=== PATIENT | male | born 1930 | race Caucasian/White ===

== ENCOUNTER 2018-08-07 13:59 | Inpatient (IN) | payer MEDICARE, OTHER ==
[2018-08-07 14:59] LABS: ABS Eosinophils 0.2 10^3/ul (0-0.6); ABS Lymphocytes 0.9 10^3/ul (1.0-4.8); ABS Monocytes 0.4 10^3/ul (0-0.8); ABS Neutrophils 3.8 10^3/ul (1.5-7.7); Eosinophil % 4.2 %; Hematocrit 43 % (42-52); Hemoglobin 14.3 g/dL (14.0-18.0); Lymphocyte % 17.1 %; Mean Corpuscular HGB Conc 33 g/dL (31-36); Mean Corpuscular Hemoglobin 30 pg (27-31); Mean Corpuscular Volume 89 fL (80-94); Mean Platelet Volume 8.3 fL (7.4-10.4); Nucleated Red Blood Cells % 0.1; Platelet Count 189 10^3/uL (150-450); Red Cell Distribution Width 17 % (10-15); White Blood Count 5.4 10^3/uL (3.5-10.8)
[2018-08-07 15:05] LABS: INR 1.02 (0.82-1.09)
[2018-08-07 15:10] LABS: Albumin/Globulin Ratio 1.3 (1-3); BUN/Creatinine Ratio 19.9 (8-20); Calcium 9.6 mg/dL (8.6-10.3); EGFR African American 43.2 (>60); EGFR Non-African American 35.7 (>60); Globulin 3.2 g/dL (2-4); Total Bilirubin 0.8 mg/dL (0.2-1.0); Total Protein 7.2 g/dL (6.4-8.9)
[2018-08-07 15:12] LABS: Troponin I 0.03 ng/mL (<0.04)
[2018-08-07 15:15] LABS: Potassium 5.1 mmol/L (3.5-5.0)
--- NOTE | 2018-08-07 15:34 | ED ---
Upper Extremity Pain - HPI Summary HPI Summary: 88 year old M [facility] accompanied by with a chief complaint of right shoulder pain since 14:00 today in triage room. The patient rates the pain 8/10 in severity. Symptoms aggravated by nothing. Symptoms alleviated by nothing. When pt got to his room for further evaluation, he told the next nurse that he had pain across both his shoulders, but denied chest pain. Upon Dr. Caruso's evaluation gives history to Dr. Caruso that she had not given to either nurse at [facility] that this morning at 10:00 in [facility], reports decreased responsiveness. She states that patient was not present and could not communicate with her. She states he wasn't able to say anything or answer her questions. states that patient's words were thick, like his tongue was thick. thought it was his blood pressure so she brought him to [facility], where patient had EKG done. The staff at [facility] referred patient to the ED. [facility] did not report to [facility] staff any hx of problems with speech or right leg weakness. reports fatigue. She states that patient asked if it was time to go to bed. reports right leg weakness in [facility]. reports inability to ambulate in [facility]. Per , patient needed help walking to the car to get to [facility]. reports chills. Patient denies headache. Patient's symptoms have improved while waiting room between 14:15 and 15:15 per . states that although patient is sleepy now, patient is almost back to normal baseline. Patient has hx AR per . 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 Patient takes aspirin per . states that patient has been in and out of hospital in [place] where they are from. Dr. Caruso completed evaluation of pt at 1600. Vital signs at triage: HR 61 bpm, BP 144/91, O2 sat 97% - History of Current Complaint Chief Complaint: EDShoulderClavicleInj Stated Complaint: RT SHOULDER PAIN PER PT Time Seen by Provider: 08/07/18 14:14 Hx Obtained From: Patient, Family/[employer] - Mechanism Of Injury: Other - no known injury of right shoulder Onset/Duration: Started Hours Ago - this morning, Still Present Timing: Constant Severity Initially: Mild Severity Currently: Moderate Pain Location: Shoulder - right Character: Aching Aggravating Factor(s): Nothing Alleviating Factor(s): Nothing Associated Signs & Symptoms: Positive: Negative - headache, Weakness - right leg weakness at 10:00, resolved upon arrival to ED, Other - decreased responsiveness, fatigue, inability to ambulate, right-sided weakness. Negative : Chest Pain, SOB, Neck Pain, Nausea, Vomiting - Allergies/Home Medications Allergies/Adverse Reactions: Allergies Allergy/AdvReac Type Severity Reaction Status Date / Time apixaban [From Eliquis] Allergy Hives Verified 08/07/18 14:08 gabapentin Allergy Rash Verified 08/07/18 14:08 rivaroxaban [From Xarelto] Allergy Hives Verified 08/07/18 14:08 Home Medications: Home Medications Aspirin TAB* [Aspirin 325 MG TAB*] 325 mg PO DAILY 08/07/18 [History Confirmed 08/07/18] Calcium Carbonate/Vitamin D3 [Calcium 1,000 + D3 Caplet] 08/07/18 [History] Denosumab(NF) [Prolia(NF)] SEE INSTRUCTIONS 08/07/18 [History] Donepezil TAB* [Aricept 5 MG TAB*] 08/07/18 [History] Latanoprost 0.005%* [Xalatan 0.005%*] 1 drop BOTH EYES DAILY 08/07/18 [History Confirmed 08/07/18] Losartan TAB* [Cozaar TAB*] 08/07/18 [History] Memantine TAB* [Namenda TAB*] 10 mg PO DAILY 08/07/18 [History Confirmed ] Methotrexate TAB* 7.5 mg PO WEEKLY 08/07/18 [History Confirmed 08/07/18] Metoprolol Tartrate TAB* [Lopressor TAB*] 25 mg PO BID 08/07/18 [History Confirmed 08/07/18] Senna TAB* [Senokot TAB*] 1 tab PO DAILY 08/07/18 [History Confirmed 08/07/18] Tamsulosin HCl [Flomax] 0.4 mg PO DAILY 08/07/18 [History Confirmed 08/07/18] predniSONE [Prednisone 5 MG TAB] 5 mg PO DAILY 08/07/18 [History Confirmed 08/07] PMH/Surg Hx/FS Hx/Imm Hx Previously Healthy: No Cardiovascular History: Reports: Hx Myocardial Infarction Respiratory History: Reports: Other Respiratory Problems/Disorders - mets to lung from metastatic melanoma GI History: Reports: Other GI Disorders - mets to liver from metastatic melanoma Sensory History: Reports: Hx Contacts or Glasses, Hx Hearing Aid Opthamlomology History: Reports: Hx Contacts or Glasses EENT History: Reports: Hx Hearing Aid Neurological History: Reports: Hx Transient Ischemic Attacks (TIA) - Cancer History Date and Location of Last Treatment: metastatic melanoma to liver and lung, not known metastatic to brain - Surgical History Surgical History: None Hx Anesthesia Reactions: No Infectious Disease History: No Infectious Disease History: Denies: Traveled Outside the [place] in Last 30 Days - Family History Known Family History: Positive: Hypertension Negative: Other - cva - Social History Lives: With Family Alcohol Use: None Hx Substance Use: No Substance Use Type: Reports: None Hx Tobacco Use: No Smoking Status (MU): Never Smoked Tobacco Review of Systems Positive: Fatigue Eyes: Negative ENT: Negative Cardiovascular: Negative Respiratory: Negative Gastrointestinal: Negative Positive: no symptoms reported Positive: Other - right shoulder pain Skin: Negative Neurological: Other - decreased responsiveness, inability to ambulate Positive: Weakness - right leg, resolved , Slurred Speech - like tongue was "thick" per . Negative: Headache Psychological: Other - drowsy, but calm, cooperative. Does not appear anxious. All Other Systems Reviewed And Are Negative: Yes Physical Exam - Summary Physical Exam Summary: Appearance: Ill-appearing, no pain distress, well-nourished, prefers eyes closed , but does open eyes for direct questions and answers question appropriately Skin: Warm, color reflects adequate perfusion, dry Head: Normal Head/Face inspection, atraumatic Eyes: Conjunctiva clear, prefers eyes closed, PERRL, EOMI, no nystagmus ENT: Normal inspection Neck: Supple, no nodes, no JVD Respiratory: Lungs clear, normal breath sounds, no respiratory distress Cardio: RRR, No murmur, pulses normal, brisk capillary refill Abdomen: Soft, nontender Bowel sounds: Present Musculoskeletal: Strength Intact/ROM intact, no calf tenderness, no edema. Psychological: Normal Neuro: A&O x3, CN II-XII intact, motor function 5/5, sensation intact, cerebellar normal GCS: 14 (-1 for eyes closed, opens to voice) Triage Information Reviewed: Yes Vital Signs On Initial Exam: Initial Vitals Temp Pulse Resp BP Pulse Ox 98.8 F 61 16 144/91 97 08/07/18 14:06 08/07/18 14:06 08/07/18 14:06 08/07/18 14:06 08/07/18 14:06 Vital Signs Reviewed: Yes - Brina Coma Scale Best Eye Response: 3 - To Speech Best Motor Response: 6 - Obeys Commands Best Verbal Response: 5 - Oriented Coma Scale Total: 14 Diagnostics - Vital Signs Vital Signs Temp Pulse Resp BP Pulse Ox 08/07/18 14:06 98.8 F 61 16 144/91 97 - Laboratory Lab Results: Lab Results 08/07/18 08/07/18 08/07/18 Range/Units 14:47 14:47 14:47 WBC 5.4 (3.5-10.8) 10^3/uL RBC 4.80 (4.18-5.48) 10^6 /uL Hgb 14.3 (14.0-18.0) g/dL Hct 43 (42-52) % MCV 89 (80-94) fL MCH 30 (27-31) pg MCHC 33 (31-36) g/dL RDW 17 H (10-15) % Plt Count 189 (150-450) 10^3/uL MPV 8.3 (7.4-10.4) fL Neut % (Auto) 70.5 % Lymph % (Auto) 17.1 % [place] % (Auto) 7.4 % Eos % (Auto) 4.2 % Baso % (Auto) 0.8 % Absolute Neuts (auto) 3.8 (1.5-7.7) 10^3/ul Absolute Lymphs (auto) 0.9 L (1.0-4.8) 10^3/ul Absolute Monos (auto) 0.4 (0-0.8) 10^3/ul Absolute Eos (auto) 0.2 (0-0.6) 10^3/ul Absolute Basos (auto) 0.0 (0-0.2) 10^3/ul Absolute Nucleated RBC 0.0 10^3/ul Nucleated RBC % 0.1 INR (Anticoag Therapy) 1.02 (0.82-1.09) Sodium 140 (135-145) mmol/L Potassium 5.1 H (3.5-5.0) mmol/L Chloride 106 (101-111) mmol/L Carbon Dioxide 30 (22-32) mmol/L Anion Gap 4 (2-11) mmol/L BUN 36 H (6-24) mg/dL Creatinine 1.81 H (0.67-1.17) mg/dL Est GFR ( Amer) 43.2 (>60) Est GFR (Non-Af Amer) 35.7 (>60) BUN/Creatinine Ratio 19.9 (8-20) Glucose 111 H (70-100) mg/dL Calcium 9.6 (8.6-10.3) mg/dL Total Bilirubin 0.80 (0.2-1.0) mg/dL AST 19 (13-39) U/L ALT 14 (7-52) U/L Alkaline Phosphatase 74 (34-104) U/L Troponin I 0.03 (<0.04) ng/mL Total Protein 7.2 (6.4-8.9) g/dL Albumin 4.0 (3.2-5.2) g/dL Globulin 3.2 (2-4) g/dL Albumin/Globulin Ratio 1.3 (1-3) Result Diagrams: 08/07/18 14:47 08/07/18 14:47 Lab Statement: Any lab studies that have been ordered have been reviewed, and results considered in the medical decision making process. - Radiology CXR Radiology Interpretation Completed By: Radiologist Summary of Radiographic Findings: 1. New retrocardiac LEFT hilar consolidation with suggestion of air bronchograms is suspicious for pneumonia or potentially infrahilar lymphadenopathy. ED physician has reviewed this report. Right shoulder x-ray Radiology Interpretation Completed By: Radiologist Summary of Radiographic Findings: 1. Negative for fracture or dislocation. 2. Osteoarthritis. 3. Negative for suspicious focal osseous lesions. ED physician has reviewed this report. - CT Brain CT Interpretation Completed By: Radiologist Summary of CT Findings: 1. No acute intracranial process evident. 2. 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 3. Involutional change and stigmata of chronic small vessel ischemic disease. ED physician has reviewed this report. Head CTA CT Interpretation Completed By: Radiologist Summary of CT Findings: Head CTA. 1. No acute abnormality. 2. Moderate multifocal stenosis of P2 segment the bilateral posterior cerebral arteries. 3. Multifocal moderate stenosis of the A1 segment of left anterior cerebral artery. 4. Multifocal mild stenosis of the M2 segment of right middle cerebral artery. 5. Multifocal [id number] stenosis of the M1 segment of left middle cerebral artery. ED physician has reviewed this report. Neck CTA CT Interpretation Completed By: Radiologist Summary of CT Findings: 1. Right: No significant stenosis of the right internal carotid artery. Multifocal mild to moderate stenosis of the right vertebral artery with calcified plaque. 2. Left: Calcified plaque in the left proximal internal carotid artery with approximately 70% stenosis. Moderate stenosis at the proximal left vertebral artery with calcified plaque. COMMENT: Reference per NASCET criteria for degree of stenosis: Mild: less than 50% stenosis. Moderate: 50-69% stenosis. Severe: 70-94% stenosis. Near occlusion: 95-99% stenosis. ED physician has reviewed this report. - EKG 1430 Cardiac Rate: NL - 62 BPM EKG Rhythm: Sinus Rhythm ST Segment: Non-Specific Ectopy: None EKG Comparison: Other - Compared to 01/14/06, the inverted T is new Summary of EKG Findings: An EKG at 14:30 reveals SR, nml IV CT, nml QTc. First degree AV block (226), Poor R wave progression V1-V3, Inverted T lead III. ED MD has reviewed and interpreted this EKG. National Institutes Of Health - NIH Scale Level of Consciousness: Alert/Keenly Responsive Ask Patient the Month and His/Her Age: One Correct/Not Aphasic Ask Pt to Open/Close Eyes and Implementation Lead/Release Non-Paretic Hand: Both Correctly Best Gaze (Only Horizontal Eye Movement): Normal Visual Field Testing: No Visual Loss Facial Paresis-Pt to Smile & Close Eyes or Grimace Symmetry: Normal/Symmetrical Motor Function - Right Arm: No Drift-Holds 10 Seconds Motor Function - Left Arm: No Drift-Holds 10 Seconds Motor Function - Right Leg: No Drift-Holds 10 Seconds Motor Function - Left Leg: No Drift-Holds 10 Seconds Limb Ataxia-Must be out of Proportion to Weakness Present: Absent Sensory (Use Pinprick to Test Arms/Legs/Trunk/Face): Normal Best Language (Describe Picture, Name Items): No Aphasia Dysarthria (Read Several Words): Normal Extinction and Inattention: No Abnormality Total Score: 1 Re-Evaluation - Re-Evaluation 1st re-eval Re-Evaluation Time: 17:40 Change: Improved Comment: Pts states he is almost back to normal. I discussed the results with the pts and the plan for admission. Pts states he has hx of melanoma that has metastasized to the lung. He denies cough or fever. The pt's states he does not do well with admission to the hospital, but I explained the need for further testing and they are agreeable with the plan. 2nd re-eval Re-Evaluation Time: 19:11 Change: Unchanged Comment: I spoke with the patient, pts [id number], and . I informed them of Dr. Gamboa desire to do the CTA head/neck. I asked the patient about his code status. Pt and family state they have a code status paper at home with states to have a short trial for CPR and intubation if emergency condition arises. Pt and state that if needed they would travel to [place] or [facility] for clot retrieval. Will proceed with CTA head/neck. 3rd re-eval Re-Evaluation Time: 19:28 Change: Improved Comment: I spoke with the patient and his family about the pts kidney function , and that he is within limits to receive the head/neck CTA. Pts states she would like the patient to receive the head/neck CTA. His says that his DNR states they can try everything one time but if it does not work, to let things take its course. His also states that his melanoma metastasized to the lungs and liver, but he is currently in remission and not on chemotherapy. Pt is not known to have brain metastases. The pt remains neurologically intact. Vital signs: HR 71bpm, SaO2 97% on room air, 24 respirations per minute , and BP 150/87. Fourth Eval Re-Evaluation Time: 22:00 Change: Improved Comment: Pt appears to be asleep, rouses easily. No speech deficit, moves all extremities. and pt given results of CTA. Advised MRI, EEG and ECHO in AM. Seizure precautions remain in place. Dr. Jiang will eval in am. Course/Dx - Course Course Of Treatment: Pt's medications reviewed this visit. Nurse's notes reviewed. Allergies noted. 88 year old M presenting to [facility] from [facility] accompanied by with a chief complaint of right shoulder pain since 14:00 today in triage room. The patient rates the pain 8/10 in severity. Symptoms aggravated by nothing. Symptoms alleviated by nothing. Pts states this morning he experienced decreased consciousness, inability to respond to questions, and thick speaking. His also currently reports R- sided leg weakness, fatigue, chills, inability to ambulate, and confusion. Staff at [facility] referred the pt to [facility] after doing his EKG. Pt denies headache. The pts states his sx improved between 14:15 and 15:15, and he is currently almost back to baseline on initial evaluation. The pt has significant PMHx of TIA and AR and metastatic melanoma. Code Gunnar was not called because after Dr. Caruso's evaluation had been completed the time passed was 6 hours from [facility] [place]. Vital signs at triage: HR 61bpm, BP 144/91, SaO2 97%. On exam, the pt is slightly confused, and prefers eyes closed but otherwise has a normal physical exam, including neurologic exam. Pt has NIH one, because he gets his age wrong. An EKG at 14:[address], nml QTc. First degree AV block (226), poor R-wave progression V1-V3, and inverted T in lead III. ED MD has reviewed and interpreted this EKG. No prior to compare. CXR shows 1. New retrocardiac LEFT hilar consolidation with suggestion of air bronchograms is suspicious for pneumonia or potentially infrahilar lymphadenopathy. R shoulder XR shows 1. Negative for fracture or dislocation. 2. Osteoarthritis. 3. Negative for suspicious focal osseous lesions. Brain CT shows 1. No acute intracranial process evident. 2. 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 3. Involutional change and stigmata of chronic small vessel ischemic disease. Test results with no significant abnormalities except for RDW 17, absolute lymphs 0.9, potassium 5.1, BUN 36, creatinine 1.81, glucose 111. As of 1739, pts states he is almost back to normal. I discussed the results with the pts and the plan for admission. Pts states he has hx of melanoma that has metastasized to the lung. He denies cough or fever. The pt's states he does not do well with admission to the hospital, but I explained the need for further testing and they are agreeable with the plan. Neurology was consulted, and after CTA does not show LVO or critical stenosis of carotid arteries, Dr. Jiang recommends seizure precautions, EEG in am, MRI without contrast (no contrast for 48 hrs), ECHO. He will evaluate in AM. I spoke with Dr. Jerez at 174 who will be accepting the pt to [facility] with dx of AMS, TIA, and abnormal chest x-ray. [address] Jiang about the pts present condition. He advised verifying the pts code status, and he recommended a CTA of the head/neck to r/o large vessel occlusion. Depending on the results, he may want to admit the patient here or transfer the pt to have an echocardiogram, MRI and EEG tomorrow to rule out seizures. 1910 I spoke with the patient, pts [id number], and . I informed them of Dr. Jiang s desire to do the CTA head/neck. I asked the patient about his code status. 1927 I spoke with the patient and his family about the pts kidney function, and that he is within limits to receive the head/neck CTA. Pts states she would like the patient to receive the head/neck CTA. His says that his DNR states they can try everything one time but if it does not work, to let things take its course. His also states that his melanoma metastasized to the lungs and liver, but he is currently in remission and not on chemotherapy. Head CTA shows: 1. No acute abnormality. 2. Moderate multifocal stenosis of P2 segment the bilateral posterior cerebral arteries. 3. Multifocal moderate stenosis of the A1 segment of left anterior cerebral artery. 4. Multifocal mild stenosis of the M2 segment of right middle cerebral artery. 5. Multifocal [id number] stenosis of the M1 segment of left middle cerebral artery. Neck CTA shows: 1. Right: No significant stenosis of the right internal carotid artery. Multifocal mild to moderate stenosis of the right vertebral artery with calcified plaque. 2. Left: Calcified plaque in the left proximal internal carotid artery with approximately 70% stenosis. Moderate stenosis at the proximal left vertebral artery with calcified plaque. COMMENT: Reference per NASCET criteria for degree of stenosis: Mild: less than 50% stenosis. Moderate: 50-69% stenosis. Severe: 70-94% stenosis. Near occlusion: 95-99% stenosis. 2205 - I spoke with Dr. Jiang who recommends admission here. - Diagnoses Differential Diagnosis/HQI/PQRI: Positive: Contusion, Fracture (Closed), Strain , Sprain, Other - TIA, seizure, metastatic disease to brain Provider Diagnoses: Altered mental state, TIA (transient ischemic attack), Abnormal chest x-ray, Metastatic melanoma, Right shoulder pain, Hyperkalemia, CKD (chronic kidney disease) stage 3, GFR 30-59 ml/min - Physician Notifications Discussed Care of Patient With: Renny Jerez Time Discussed With Above Provider: 17:43 Instructed by Provider To: Admit As Inpatient - Critical Care Time Critical Care Time: 30-74 min - 45 mins Discharge - Sign-Out/Discharge Documenting (check all that apply): Patient Departure - Discharge Plan Condition: Stable Disposition: ADMITTED TO [facility] - Billing Disposition and Condition Condition: STABLE Disposition: Admitted to [facility] - Attestation Statements Document Initiated by Mily: Yes Documenting Scribe: Keira Winkler Provider For Whom Mily is Documenting (Include Credential): Yanet Caruso MD Scribe Attestation: IAmanda Kathryn O'Connor, scribed for Yanet Caruso MD on 08/08/18 at 0019. Scribe Documentation Reviewed: Yes Provider Attestation: The documentation as recorded by the Amanda baltazar Kathryn O'Connor accurately reflects the service I personally performed and the decisions made by me, Yanet Caruso MD Status of Scribe Document: Viewed Consult Consult: 174 - I spoke with Dr. Jerez who will be accepting the pt to [facility]. [address] Jiang about the pts present condition. He advised verifying the pts code status, and he recommended a CTA of the head/neck to r/ o large vessel occlusion. Depending on the results, he may want to admit the patient here or transfer the pt to have further evaluation at [facility]. If admitted to [facility] pt will need an echocardiogram, MRI and EEG tomorrow rule out seizures, and further evaluation of metastatic melanoma and TIA. 2205 - I spoke with Dr. Jiang about the pt's CTA results. He recommends admission here.
[2018-08-07] MEDS ORDERED: Iodixanol* (CONTRAST) 320 MG/ML 100 ML SDV IV ONE (19:54)
[2018-08-07] MEDS: NS 0.9% 1000 ML** 1,000 ML IV SCH (20:48)
[2018-08-07] MEDS ORDERED: Al Hydrox/Mg Hydrox/Simet LIQ* 30 ML UDC PO PRN (22:27)
[2018-08-08 00:28] LABS: ABS Basophils 0.1 10^3/ul (0-0.2); ABS Eosinophils 0.4 10^3/ul (0-0.6); ABS Monocytes 0.5 10^3/ul (0-0.8); ABS Neutrophils 2.8 10^3/ul (1.5-7.7); Eosinophil % 7.6 %; Hematocrit 38 % (42-52); Hemoglobin 12.6 g/dL (14.0-18.0); Lymphocyte % 21.8 %; Mean Corpuscular HGB Conc 33 g/dL (31-36); Mean Corpuscular Hemoglobin 30 pg (27-31); Mean Corpuscular Volume 89 fL (80-94); Nucleated Red Blood Cells % 0.1; Platelet Count 164 10^3/uL (150-450); Red Blood Count 4.28 10^6 /uL (4.18-5.48); Red Cell Distribution Width 17 % (10-15); White Blood Count 4.8 10^3/uL (3.5-10.8)
[2018-08-08 00:39] LABS: Activated Partial Thrombo Time 31.5 seconds (26.0-38.0); INR 1.07 (0.82-1.09)
[2018-08-08 00:43] LABS: EGFR African American 50.9 (>60); EGFR Non-African American 42.1 (>60)
--- NOTE | 2018-08-08 00:58 | HP ---
CC: Dr. Frank * HISTORY AND PHYSICAL: DATE OF ADMISSION: 08/07/18 PROVIDER: SID Turpin ATTENDING PHYSICIAN: Dr. Renny Jerez * (dictated by SID Turpin) . PRIMARY CARE PROVIDER: Dr. Frank. CHIEF COMPLAINT: Dizziness, "garbled speech." HISTORY OF PRESENT ILLNESS: Mr. 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. The patient was at [facility] earlier today with his , when he complained of feeling dizzy and was apparently feeling tired because he said "can I go to bed? " The then later noticed that the patient started to have garbled speech and she describes it as his tongue "sounding too large in his mouth." They then reported to the [facility] who upon learning that he was also experiencing right shoulder pain, they asked him to report to the emergency department. The patient is experiencing right shoulder pain that is radiating down his arm when elevating the right arm. Additionally, the of the patient notes that she and their son were having difficulty getting him into the car when normally he ambulates well on his own and is able to transition well on his own. Additionally, the patient has had a headache since yesterday. The patient spends 7 months out of a year in [place], [place] which is where he was receiving his oncology care at [facility] in [place]. The patient denies neck pain, jaw pain, abdominal pain, nausea, vomiting , chest pain, shortness of breath, fever, chills. At the time of evaluation by myself, the patient's agrees that his speech is no longer appeared garbled and she believes that the garbled sounding speech only lasted approximately 4 hours. Additionally, history is gathered from the patient and his and there is limited information in the electronic medical record. EMERGENCY DEPARTMENT COURSE: When the patient arrived to the emergency department, his vital signs were temperature 98.8, pulse 61 beats per minute, respiratory rate 16, oxygen saturation 97% on room air, blood pressure 144/91. When the patient was in the emergency room, he did not receive any medications. At the time of evaluation, blood pressure was noted to be 190/94 on the monitor. The hospitalists were then asked to evaluate the patient for admission given neurologic symptoms. PAST MEDICAL HISTORY: 1. History of melanoma with metastasis to lung and liver, status post chemo and radiation, now in remission. 2. CVA. 3. Atrial fibrillation, status post pacemaker. 4. Coronary artery disease, status post CABG. 5. Rheumatoid arthritis. 6. GERD. 7. BPH. 8. Glaucoma. 9. CKD. 10. Hard of hearing. 11. Dementia. PAST SURGICAL HISTORY: 1. CABG. 2. Melanoma excisions on right arm and left arm. 3. Hernia repair. 4. Cataract surgery. HOME MEDICATIONS: 1. Losartan (dose unknown at this time). 2. Flomax 0.4 mg daily. 3. Memantine 10 mg p.o. daily. 4. Calcium and vitamin D tab. 5. Donepezil, unknown dose at this time. 6. Latanoprost eye drops. 7. Methotrexate 7.5 mg p.o. every Wednesday. 8. Prednisone 5 mg daily. 9. Senna. 10. Aspirin 325 mg p.o. daily. 11. Metoprolol tartrate 25 mg b.i.d. 12. ProAir q.6h prn sob/wheezing. ALLERGIES: To GABAPENTIN (rash), APIXABAN (hives), RIVAROXABAN (hives). FAMILY HISTORY: Noncontributory. SOCIAL HISTORY: The patient lives in [place] with his , 5 months out of the year and the other 7 months out of the year in [place], [place]. He does not smoke. He does not use illicit drugs. He identifies his as his surrogate medical decision maker, his Saige at [phone]. REVIEW OF SYSTEMS: An 11-point review of systems has been completed. All pertinent positives and negatives are above in the HPI. All other systems are negative. PHYSICAL EXAMINATION GENERAL: Thin, elderly white male, lying in hospital bed, appearing comfortable , in no acute distress. and son at bedside. HEENT: Head: Normocephalic, atraumatic. Eyes: PERRL. Sclerae anicteric. No nystagmus. Bilateral hemianopsia (the notes that this is consistent with baseline since his previous stroke). ENT: Mucous membranes moist. NECK: Supple without JVD. LUNGS: Clear to auscultation throughout. CARDIO: Irregularly irregular rhythm. No murmurs appreciated. ABDOMEN: Abdomen is soft, nontender, nondistended. EXTREMITIES: No clubbing, cyanosis, or edema. MUSCULOSKELETAL: Limited mobility of abduction of right shoulder due to pain. No tenderness to palpation throughout right shoulder down right upper extremity. No ecchymosis or edema to right shoulder. NEURO: The patient is alert and oriented to self, place, but not the year. The patient has a positive left Romberg sign. Strength is 5/5 in all extremities bilaterally. Sensation is intact and equal throughout all extremities and the face. Face is symmetrical. Speech is clear. SKIN: Skin is warm, dry, and intact. DIAGNOSTIC STUDIES/LAB DATA: White blood cell count 5.4, hemoglobin 14.3, hematocrit 43, platelet count 189. Sodium 140, potassium 5.1, chloride 106, carbon dioxide 30, anion gap 4, BUN 36, creatinine 1.81, glucose 111, calcium 9.6. Troponin 0.03 and then 0.01. Total bilirubin 0.80, AST 19, ALT 14, alk phos 74. INR 1.02. EKG demonstrates irregularly irregular rhythm at rate of 63 beats per minute. No ST elevations or depressions. There is isolated T-wave inversion in lead 3. Similar to previous EKG. Shoulder x-ray, negative for fracture or dislocation. Osteoarthritis. Negative for suspicious focal osseous lesions. Please note that was of the right shoulder. Chest x-ray, new retrocardiac left hilar consolidation with suggestion of air bronchograms suspicious for pneumonia or potentially infrahilar lymphadenopathy. On my read, this is less suspicious for a consolidation. Brain CT, impression: No acute intracranial process evident. Old right middle cerebral artery distribution infarct. Involutional change and stigmata of chronic small vessel ischemic disease. 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 The patient will be admitted on observation for: 1. Aphasia. At the time of my evaluation, the stroke protocol has not yet been completed by the emergency department and CTA head and neck has not yet been completed as instructed by the neurologist mooner, Dr. Jiang. The patient may need to be transferred to a tertiary care center depending on the results of this test. As of now, an MRI with and without contrast will be ordered for tomorrow morning and CT of the brain is negative for acute intracranial pathology. It would be of benefit if tomorrow morning records are obtained from Dr. Frank's office, [facility], and [facility] in [place]. The EEG should be planned for tomorrow morning and the patient should be placed on seizure precautions. Additionally, neurological testing should be done every 2 hours. P.r.n. Ativan will be ordered for p.r.n. seizures. Echo with bubble study will be ordered as well. 2. Hypertensive urgency. Given that the patient has possibility of a stroke, blood pressure cannot be lowered too quickly, I will order his home metoprolol with holding parameters for less than 160 systolic blood pressure. 3. Infrahilar lymphadenopathy. CT chest without contrast should be ordered for tomorrow. Given the patient's history of melanoma with metastases to the lung and liver, this represents possibility of recurrence. 4. Atrial fibrillation. The patient is currently in atrial fibrillation. He is rate controlled. I will continue his home full dose aspirin and metoprolol. 5. Acute kidney injury on chronic kidney disease. It appears the patient's baseline creatinine is approximately 1.5, today it is 1.8. Given the possibility of CT angiogram, IV hydration to prevent further kidney injury would be of benefit if this test is performed. I will be holding his home losartan (of which we do not know the home dose at this time). 6. Dementia. Continue the patient's home donepezil and memantine. 7. Rheumatoid arthritis. We will continue the patient's home prednisone and hold his home methotrexate. 8. Benign prostatic hypertrophy. Continue home Flomax. 10. DVT prophylaxis. Lovenox given history of cancer. 11. Code status. The patient is a full code. TIME SPENT: Approximately 60 minutes was spent on this admission, approximately half of this time was spent at bedside. This case has been reviewed by my attending, Dr. Renny Jerez, and he agrees with this assessment and plan of care. SID TURPIN [id number]/[facility] #: [id number] [facility]ITALJohn
[2018-08-08] MEDS: Heparin VIAL(*) 5000 UNITS/ML VIAL (FIVE THOUSAND) SUBCUT SCH ×3 (05:56→20:49)
[2018-08-08] MEDS: NS 0.9% 1000 ML** 1,000 ML IV SCH ×2 (07:48→20:47)
[2018-08-08] MEDS: Memantine TAB* 10 MG PO SCH (07:57)
[2018-08-08] MEDS: Aspirin TAB* 325 MG PO SCH (07:57)
[2018-08-08] MEDS: Senna TAB PO SCH (07:57)
[2018-08-08] MEDS: predniSONE TAB* 5 MG PO SCH (07:57)
[2018-08-08] MEDS: Tamsulosin CAP* 0.4 MG PO SCH (07:57)
[2018-08-08] MEDS: Docusate CAP* 100 MG PO SCH ×2 (07:57→20:50)
[2018-08-08] MEDS: Acetaminophen TAB* 325 MG PO PRN ×2 (07:58→20:48)
[2018-08-08] MEDS: Metoprolol Tartrate TAB* 25 MG PO SCH ×2 (07:58→20:49)
[2018-08-08 08:54] LABS: ABS Basophils 0.1 10^3/ul (0-0.2); ABS Eosinophils 0.4 10^3/ul (0-0.6); ABS Monocytes 0.4 10^3/ul (0-0.8); ABS Neutrophils 2.8 10^3/ul (1.5-7.7); Eosinophil % 9.3 %; Hematocrit 41 % (42-52); Hemoglobin 13.6 g/dL (14.0-18.0); Lymphocyte % 21.6 %; Mean Corpuscular HGB Conc 33 g/dL (31-36); Mean Corpuscular Hemoglobin 29 pg (27-31); Mean Corpuscular Volume 89 fL (80-94); Mean Platelet Volume 8.1 fL (7.4-10.4); Platelet Count 174 10^3/uL (150-450); Red Blood Count 4.66 10^6 /uL (4.18-5.48); Red Cell Distribution Width 17 % (10-15); White Blood Count 4.6 10^3/uL (3.5-10.8)
[2018-08-08 09:07] LABS: BUN/Creatinine Ratio 19.2 (8-20); Calcium 8.7 mg/dL (8.6-10.3); EGFR African American 55.4 (>60); EGFR Non-African American 45.8 (>60); Potassium 3.6 mmol/L (3.5-5.0)
[2018-08-08] MEDS: Latanoprost 0.005%* 2.5 ml BTL BOTH EYES SCH (10:03)
[2018-08-08 12:46] LABS: HDL Cholesterol 46.1 mg/dL
--- NOTE | 2018-08-08 13:18 | ECHO ---
*[facility]* [place] [address] Fax #: [phone] Transthoracic Echocardiogram Patient: Remington, Height: 74 in / 188 Alfvalentín Manjarrez cm : 1930 Weight: 179.6 lb / Study Date: 08/08/2018 81.6 kg Age: 88 BP: 143 / 69 Gender: M BMI/BSA: 23.1 kg/m^2 HR: 61 bpm / 2.08 m^2 *Die Turner: * Corie Farley [facility] *Referring Physician: * Arlette Coto *Reading Physician: * Deandre Carcamo MD Indications: TIA. History: CKD. Metastatic melanoma with mets to heart, radiation. Atrial fibrillation. Coronary artery disease. Labs, prior tests, procedures, and surgery: Permanent pacemaker system implantation. Coronary artery bypass grafting. Conclusions Summary: 1. Left ventricle: Systolic function is normal. The estimated ejection fraction is 50-55%. Wall motion is normal; there are no regional wall motion abnormalities. 2. Right ventricle: Systolic function is normal. 3. Atrial septum: A PFO is not demonstrated by color Doppler or agitated saline contrast. 4. Mitral valve: There is trivial regurgitation. 5. Aortic valve: There is no evidence of stenosis. There is mild regurgitation. 6. Pericardium, extracardiac: There is no significant pericardial effusion. 7. Study data: No prior study is available for comparison. Study data: Transthoracic echocardiogram. Procedure: Transthoracic echocardiography was performed. Image quality was fair. A bubble study was performed. Images 1-3. Complete 2D, spectral Doppler, and color flow Doppler. Location: Bedside. Patient status: Inpatient. Patient room number: 449 02. No prior study is available for comparison. Rhythm: Normal sinus rhythm. Findings Left ventricle: The cavity size is normal. Wall thickness is mildly increased. Systolic function is normal. The estimated ejection fraction is 50-55%. Wall motion is normal; there are no regional wall motion abnormalities. There is no consistent Doppler evidence of clinically significant diastolic dysfunction. Right ventricle: The cavity size is normal. Pacer wire noted in the right ventricle. Systolic function is normal. Left atrium: The atrium is mildly to moderately dilated. Right atrium: The atrium is moderately dilated. Pacer wire noted in right atrium. Atrial septum: A PFO is not demonstrated by color Doppler or agitated saline contrast. The atrial septum is aneurysmal. Mitral valve: The leaflets are mildly thickened. There is no evidence of stenosis. There is trivial regurgitation. Aortic valve: The valve is trileaflet. The leaflets are normal thickness. There is no evidence of stenosis. There is mild regurgitation. Tricuspid valve: The leaflets are normal thickness. There is no evidence of stenosis. There is mild regurgitation. Pulmonic valve: The leaflets are normal thickness. There is no evidence of stenosis. There is mild regurgitation. Aorta: Aortic arch: The aortic arch is appears normal. The aortic root is not dilated. Pericardium: There is no significant pericardial effusion. Pulmonary arteries: Not well visualized. Systolic pressure is within the normal range. Systemic veins: Inferior vena cava: The vessel is normal in size. The respirophasic diameter changes are in the normal range (>= 50%). Measurements Left ventricle Value Ref Aortic valve continued Value Ref MIGUELANGEL, LAX (L) 4.0 cm 4.2 - 5.8 VTI, S 20.8 cm ----- ESD, LAX 2.7 cm 2.5 - 4.0 Mean grad, S 2.0 mm Hg ----- FS, LAX 31 % 25 - 43 Peak grad, S 4.0 mm Hg ----- PW, ED, LAX (H) 1.1 cm 0.6 - 1.0 AR peak v 4 m/sec ----- EF 59 % 52 - 72 AR PHT 957 ms ----- E', lat harrison, TDI (L) 8.0 cm/sec >=10.0 AR peak grad 64 mm Hg - ---- E/e', lat harrison, 5 TDI Mitral valve Value Ref E', med harrison, TDI (L) 4.6 cm/sec >=7.0 Peak E 0.42 m/sec - ---- E/e', med harrison, 9 Peak A 0.58 m/sec ---- - TDI Decel time 264 ms ----- E', avg, TDI 6.3 cm/sec Peak E/A ratio 0.7 ---- - E/e', avg, TDI 7 <=14 Pulmonic valve Value Ref LVOT Value Ref Peak v, S 0.4 m/sec ----- Peak reese, S 0.81 m/sec Peak grad, S 1.0 mm Hg ----- Mean grad, S 1 mm Hg Tricuspid valve Value Ref Ventricular septum Value Ref TR peak v 2.1 m/sec <=2.8 IVS, ED (H) 1.2 cm 0.6 - 1.0 Peak RV-RA grad, S 18 mm Hg ----- Right ventricle Value Ref Aortic root Value Ref MIGUELANGEL, LAX 3.7 cm Root diam 3.6 cm <4.2 MIGUELANGEL minor ax, A4C (H) 3.7 cm 1.9 - 3.5 mid Ascending aorta Value Ref Pressure, S 26 mm Hg AAo AP diam, S 3.1 cm ----- Left atrium Value Ref Aortic arch Value Ref AP dim, ES 3.30 cm 3.00 - Arch diam 3.3 cm ----- 4.00 ML dim, A4C 4.3 cm Decending aorta Value Ref SI dim, A4C 7.0 cm Karina peak reese 0.48 m/sec ----- Vol/bsa, ES, A/L (H) 41 ml/m^2 16 - 34 Pulmonary artery Value Ref Right atrium Value Ref Pressure, S 25.0 mm Hg ----- SI dim, ES (H) 6.7 cm 3.4 - 5.3 ML dim, ES, A4C 4.3 cm 2.6 - 4.4 Inferior vena cava Value Ref Estimated RAP 8 mm Hg Diam 1.5 cm ----- Aortic valve Value Ref Harrison diam, ED 2.2 cm Peak v, S 0.98 m/sec Legend: (L) and (H) nelson values outside specified reference range. Prepared and electronically signed by Deandre Carcamo MD 08/08/2018 13:17
[2018-08-08 13:38] LABS: TSH (Thyroid Stimulating Horm) 7.09 mcIU/mL (0.34-5.60)
--- NOTE | 2018-08-08 15:14 | CONS ---
NEUROLOGY CONSULTATION REPORT: DATE OF CONSULT: 08/08/18 CONSULTING PROVIDER: SID Turpin REASON FOR CONSULT: Stroke like symptoms. HISTORY OF PRESENT ILLNESS: Mr. 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 The patient was in normal state of health at 10:30 a.m. on 08/07/18. He was able to walk into the car to go to Wednesday morning service. When they arrived at judaism, the patient was having trouble getting out of the car. It required 4 men to get him out of the car and to walk him into the [facility]. During the service, Mrs. Macedo noticed that the patient is drowsy and unable to keep his head up. She asked him if he was okay and he was slurring his speech. Mrs. Macedo figured that he may be tired and put him in a car and took him to [facility]. At the urgent care, the patient had an EKG and then was sent to the hospital for further evaluation for stroke. In the ED, the patient was complaining of right shoulder pain radiating down the arm. The episode that he had earlier at [facility] was not too concerning to family, but eventually was brought up by family. The patient had stroke evaluation that included a CT head which showed a large encephalomalacia in the right frontal region consistent with his previous history of stroke. He had a CTA head and neck that showed multivessel narrowing involving the followin. Moderate multifocal stenosis of P2 segment in the bilateral posterior cerebral arteries. 2. Multifocal moderate stenosis of the A1 segment of the left anterior cerebral artery. 3. Multifocal mild stenosis of the M2 segment of the right middle cerebral artery. 4. Multifocal xjru-yq-yglejudm stenosis of the M1 segment of the left middle cerebral artery. PAST MEDICAL HISTORY: History of melanoma with metastases to the lungs and liver but not to the brain, right middle cerebral artery ischemic infarction, atrial fibrillation status post pacemaker but not on anticoagulation therapy, coronary artery disease status post CABG, rheumatoid arthritis, GERD, BPH, glaucoma, CKD, hearing loss, and dementia. PAST SURGICAL HISTORY: CABG, melanoma excision, hernia repair, and cataract surgery. MEDICATIONS: 1. Tamsulosin 0.4 mg. 2. Memantine 10 mg p.o. daily. 3. Donepezil 5 mg tablets daily. 4. Methotrexate 7.5 mg p.o. weekly. 5. Prednisone 5 mg p.o. daily. 6. Aspirin 325 mg p.o. daily. 7. Metoprolol 25 mg p.o. b.i.d. 8. Denosumab 15 mg/mL vial. ALLERGIES: GABAPENTIN, APIXABAN, RIVAROXABAN. FAMILY HISTORY: No family history of stroke or seizure. SOCIAL HISTORY: The patient lives with his spouse in [place]. He also lives in [place], [place] during the winter months. He denied any tobacco or alcohol use. REVIEW OF SYSTEMS: A 14-point review of system was obtained and otherwise negative except for as mentioned in the HPI. PHYSICAL EXAMINATION: Vitals: Temperature 97.4, pulse rate 62, respiratory rate of 18, oxygen saturation of 97% on room air, blood pressure 155/74. General: Thin appearing frail man who is tall, who is in no acute distress. Head: Normocephalic and atraumatic. Eyes: Conjunctivae/corneas are clear. Neck is supple and symmetrical with no carotid bruits and no lymphadenopathy. Lungs are clear to auscultation bilaterally. Cardiovascular: Irregular rhythm and rate. Extremities: Normal range of motion with no cyanosis. Skin: No skin lesions or lacerations. Psych: Affect is broad and normal mood. Neurological Examination: Awake, alert to self and family members nearby, but not to place, time, or general circumstances. He does not recall having generalized weakness, yesterday was unable to get out of the car. He has psychomotor slowing. He has short-term memory loss. Cranial nerves: Normal confrontation testing bilaterally. Sensation is intact on the forehead, cheeks , and jaw region bilaterally. There is no facial droop. He is hard of hearing. Symmetrical palatal elevation. Normal strength against shoulder shrug. Tongue is symmetrical and midline with no atrophy or fasciculation. Motor Examination: No abnormal movements or pronator drift. He has got 5/5 strength in the upper and lower extremities symmetrically. Reflexes: Right/ left brachioradialis 1/1, biceps 1/1, triceps 1/1, patella 1/1, and ankle 0/0, plantar flexor/flexor. Sensation is intact to light touch throughout. Coordination: Normal tpuuek-xe-udqm and rapid alternating movement. Gait and station; wide based gait, slightly ataxia towards the left side. DIAGNOSTIC STUDIES/LABORATORY DATA: WBC 45.6, hemoglobin 13.6, hematocrit of 41 , platelet count 174,000. INR is 1.07, aPTT 31.5. Sodium 141, chloride of 108 , carbon dioxide of 28, BUN of 28 and creatinine of 1.46. NIH stroke scale is 1 for lack of orientation, but the patient has history of dementia. ASSESSMENT: Mr. Alf Macedo is an 88-year-old man with history of right middle cerebral artery ischemic stroke, CABG, and atrial fibrillation not on anticoagulation therapy. He does have a permanent pacemaker. The pacemaker compatibility to MRI is unknown. The patient presented with transient episode of generalized weakness, dysarthria, and gait imbalance. According to family, the patient's symptoms have improved, but not completely resolved. On examination today, the patient does continue to have a gait imbalance which is new. He usually can walk without assistance. This is concerning for a possible cerebellar stroke mostly involving the left cerebellum. He does have known history of intracranial stenoses, especially in the posterior circulation in addition to atrial fibrillation not on anticoagulation therapy. It seems like the patient did have an allergic reaction to the NOACs, both APIXABAN and RIVAROXABAN. Given his atrial fibrillation, he will need to be on long-term anticoagulation therapy. The family and the patient refused to start the patient on anticoagulation therapy. 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 However, clearly he may also be having ischemic or embolic strokes given his acute neurological change. Other differential diagnoses include: 1. Focal seizures, although seizures would alter his sensorium, but not affect his gait, especially that he is more awake and cooperative. 2. Lastly, we need to evaluate for urinary tract infection which can cause recrudescence of previous neurological deficit such as more weakness on the left side or gait ataxia towards the left. RECOMMENDATIONS: Continue aspirin 325 mg daily for now. Please discuss the need for anticoagulation therapy given his history of atrial fibrillation with the patient and family. We need to check the pacemaker compatibility with MRI prior to obtaining the study. If the pacemaker is incompatible with the MRI, then we need to do a repeat CAT scan without contrast tomorrow. Please order TSH, vitamin B12, urinalysis to rule out any urinary tract infections. If not yet obtained, please order an EEG to evaluate for epileptiform abnormalities. Neuro checks every 4 hours. Please consult PT/OT/ENGINEERING PROGRAMMER for evaluation and treatment. Continue Lovenox for DVT prophylaxis. I will continue to follow. I discussed the above recommendations with the patient, his spouse, and son who are at bedside. [id number]/[facility] #: [id number] [facility]ITAL[facility]
[2018-08-08 18:50] LABS: Urine Appearance Clear; Urine Bilirubin Negative (Negative); Urine Blood Negative (Negative); Urine Color Yellow; Urine Glucose Negative (Negative); Urine Ketones Negative (Negative); Urine Nitrite Negative (Negative); Urine Protein Negative (Negative); Urine Specific Gravity 1.019 (1.010-1.030); Urine Urobilinogen Negative (Negative)
--- NOTE | 2018-08-08 21:09 | PN ---
Subjective Date of Service: 08/08/18 Interval History: Patient feels well today. Denies dizziness/lightheadedness, headache, blurred vision, difficulty breathing, chest pain, weakness, numbness/tingling. Objective Active Medications: Acetaminophen (Tylenol Tab*) 650 mg PO Q4H PRN PRN Reason: FEVER/PAIN Last Admin: 08/08/18 20:48 Dose: 650 mg Al Hydrox/Mg Hydrox/Simethicone (Maalox Plus*) 30 ml PO Q6H PRN PRN Reason: INDIGESTION Aspirin (Aspirin Tab*) 325 mg PO DAILY [facility] Last Admin: 08/08/18 07:57 Dose: 325 mg Docusate Sodium (Colace Cap*) 100 mg PO BID [facility] Last Admin: 08/08/18 20:50 Dose: 100 mg Heparin Sodium (Porcine) (Heparin Vial(*)) 5,000 units SUBCUT Q8HR [facility] Last Admin: 08/08/18 20:49 Dose: 5,000 units Sodium Chloride (Ns 0.9% 1000 Ml) 1,000 mls @ 100 mls/hr IV PER RATE [facility] Last Admin: 08/08/18 20:47 Dose: 100 mls/hr Latanoprost (Xalatan 0.005%*) 1 drop BOTH EYES DAILY [facility] Last Admin: 08/08/18 10:03 Dose: 1 drop Memantine (Namenda Tab*) 10 mg PO DAILY [facility] Last Admin: 08/08/18 07:57 Dose: 10 mg Metoprolol Tartrate (Lopressor Tab*) 25 mg PO BID [facility] Last Admin: 08/08/18 20:49 Dose: 25 mg Prednisone (Deltasone Tab*) 5 mg PO DAILY [facility] Last Admin: 08/08/18 07:57 Dose: 5 mg Senna (Senokot Tab*) 1 tab PO DAILY [facility] Last Admin: 08/08/18 07:57 Dose: 1 tab Tamsulosin HCl (Flomax Cap*) 0.4 mg PO DAILY [facility] Last Admin: 08/08/18 07:57 Dose: 0.4 mg Vital Signs - 8 hr 08/08/18 20:49 Temperature 97.1 F Pulse Rate 65 Respiratory 20 Rate Blood Pressure 129/48 (mmHg) O2 Sat by Pulse 99 Oximetry Oxygen Devices in Use Now: None Appearance: Thin, elderly white male laying in hospital bed appearing in NAD; and son at bedside Eyes: No Scleral Icterus, PERRLA, - - Bilateral hemianopsia, consistent with residual deficit of prior stroke Ears/Nose/Mouth/Throat: Mucous Membranes Moist Neck: NL Appearance and Movements; NL JVP Respiratory: Symmetrical Chest Expansion and Respiratory Effort, Clear to Auscultation Cardiovascular: NL Sounds; No Murmurs; No JVD, - - irregularly irregular rhythm , consistent with atrial fib Abdominal: - - abd sofot, nontender, nondistended Extremities: No Edema, No Clubbing, Cyanosis Skin: No Rash or Ulcers Neurological: Alert and Oriented x 3, NL Sensation, NL Muscle Strength and Tone Result Diagrams: 08/08/18 08:40 08/08/18 08:40 Additional Lab and Data: Lab Results 08/07/18 08/07/18 08/07/18 Range/Units 14:47 14:47 14:47 WBC 5.4 (3.5-10.8) 10^3/uL RBC 4.80 (4.18-5.48) 10^6 /uL Hgb 14.3 (14.0-18.0) g/dL Hct 43 (42-52) % MCV 89 (80-94) fL MCH 30 (27-31) pg MCHC 33 (31-36) g/dL RDW 17 H (10-15) % Plt Count 189 (150-450) 10^3/uL MPV 8.3 (7.4-10.4) fL Neut % (Auto) 70.5 % Lymph % (Auto) 17.1 % Dent % (Auto) 7.4 % Eos % (Auto) 4.2 % Baso % (Auto) 0.8 % Absolute Neuts (auto) 3.8 (1.5-7.7) 10^3/ul Absolute Lymphs (auto) 0.9 L (1.0-4.8) 10^3/ul Absolute Monos (auto) 0.4 (0-0.8) 10^3/ul Absolute Eos (auto) 0.2 (0-0.6) 10^3/ul Absolute Basos (auto) 0.0 (0-0.2) 10^3/ul Absolute Nucleated RBC 0.0 10^3/ul Nucleated RBC % 0.1 INR (Anticoag Therapy) 1.02 (0.82-1.09) Sodium 140 (135-145) mmol/L Potassium 5.1 H (3.5-5.0) mmol/L Chloride 106 (101-111) mmol/L Carbon Dioxide 30 (22-32) mmol/L Anion Gap 4 (2-11) mmol/L BUN 36 H (6-24) mg/dL Creatinine 1.81 H (0.67-1.17) mg/dL Est GFR ( Amer) 43.2 (>60) Est GFR (Non-Af Amer) 35.7 (>60) BUN/Creatinine Ratio 19.9 (8-20) Glucose 111 H (70-100) mg/dL Calcium 9.6 (8.6-10.3) mg/dL Total Bilirubin 0.80 (0.2-1.0) mg/dL AST 19 (13-39) U/L ALT 14 (7-52) U/L Alkaline Phosphatase 74 (34-104) U/L Troponin I 0.03 (<0.04) ng/mL Total Protein 7.2 (6.4-8.9) g/dL Albumin 4.0 (3.2-5.2) g/dL Globulin 3.2 (2-4) g/dL Albumin/Globulin Ratio 1.3 (1-3) Microbiology and Other Data: Microbiology 08/07/18 20:31 Nasal Screen MRSA (PCR) - Final Nasal Mrsa Not Detected Assess/Plan/Problems-Billing Assessment: 88 yo male with PMHx prior CVA, atrial fibrillation (not on AC), pacemaker, CAD s/p CABG, melanoma with mets now in remission presents with aphasia and gait disturbance. - Patient Problems (1) Gait disturbance Code(s): R26.9 - UNSPECIFIED ABNORMALITIES OF GAIT AND MOBILITY SNOMED Code(s) : 41572426 Comment: -new gait disturbance -brain CT on admission without acute intracranial abnormality -Dr. Knox has concern for cerebellar stroke; patient has afib not on AC and has hx of prior CVA -echo with bubble study negative for PFO -MRI brain is not an option as his pacemaker is not compatible, confirmed with [employer] by RN -repeat CT brain tomorrow per Dr. Knox -PT recommends rehab, discussed option of PMRU with family -EEG pending, UA is negative, B12 wnl -TSH elevated, will check free T3/T4 -elevated LDL, starting lipitor (2) Aphasia Code(s): R47.01 - APHASIA SNOMED Code(s): 36794255 Comment: -resolved at time of evaluation to admit (3) Hypertensive urgency Code(s): I16.0 - HYPERTENSIVE URGENCY SNOMED Code(s): 162921993 Comment: -continue home metoprolol and continue to monitor -not utilizing prn IV antihypertensives given possibility of stroke (4) Atrial fibrillation Code(s): I48.91 - UNSPECIFIED ATRIAL FIBRILLATION SNOMED Code(s): 89548170 Comment: -rate-controlled -continue full dose ASA, metoprolol -I discussed risks and benefits of coumadin anticoagulation with patient and family, his would like to think about decision at this time (5) BPH (benign prostatic hyperplasia) Code(s): N40.0 - BENIGN PROSTATIC HYPERPLASIA WITHOUT LOWER URINRY TRACT SYMP SNOMED Code(s): 698622336 Comment: -continue flomax (6) Dementia Code(s): F03.90 - UNSPECIFIED DEMENTIA WITHOUT BEHAVIORAL DISTURBANCE SNOMED Code(s): 92057014 Comment: -continue memantine -home dose of donepezil is unknown at this time (7) Rheumatoid arthritis Code(s): M06.9 - RHEUMATOID ARTHRITIS, UNSPECIFIED SNOMED Code(s): 39396564 Comment: -continue home prednisone -hold MTX (8) CKD (chronic kidney disease) Code(s): N18.9 - CHRONIC KIDNEY DISEASE, UNSPECIFIED SNOMED Code(s): 532260291 Comment: -admitted with superimposed KATERIN, now appears at baseline (9) Full code status Code(s): Z78.9 - OTHER SPECIFIED HEALTH STATUS SNOMED Code(s): 918685732 (10) DVT prophylaxis Code(s): Z29.9 - ENCOUNTER FOR PROPHYLACTIC MEASURES, UNSPECIFIED SNOMED Code( s): 008419165 Comment: -continue heparin subq tid
[2018-08-08] MEDS ORDERED: Atorvastatin* 20 MG TAB PO SCH (21:30)
--- NOTE | 2018-08-08 22:20 | EEG ---
EEG REPORT: DATE OF SERVICE: 08/08/18 - ROOM #449 DATE READ: 08/08/18 MEDICATIONS: 1. Acetaminophen. 2. Heparin. 3. Docusate. 4. Metoprolol. 5. Aspirin. 6. Memantine. 7. Prednisone. 8. Senna. 9. Tamsulosin. 10. Maalox. INDICATION: Mr. Alf Macedo is an 88-year-old man who had an episode of generalized weakness, fatigue, and slurred speech. This EEG was obtained to evaluate for epileptiform abnormalities or electrographic seizures. CLINICAL STATE: Waking. REPORT: The most prominent features of this recording were intermittent diffuse high amplitude 2-3 Hz delta slowing lasting 1-2 seconds. In addition, there was intermittent, polymorphic, occasional, 2-6 Hz theta and delta slowing over the right frontotemporal region, maximal at F8 and T4. Otherwise, the background consisted of a mixed frequency slowing in the delta and theta range with appropriate organization and clearly defined anterior, posterior voltage gradients. There was a slow posterior waking background rhythm of 7 Hz, which was symmetrical and showed normal reactivity. Anteriorly , there was an expected pattern of lower voltage, irregular, mixed faster frequencies. Hyperventilation and photic stimulation were not performed. Single electrode EKG showed sinus rhythm with a rate of 70 beats per minute. Throughout the recording, there were no electrographic seizures. IMPRESSION: This is an abnormal awake EEG due to the presence of focal slowing in the right frontotemporal region, intermittent diffuse slowing of the background, and slow posterior dominant rhythm. These findings are suggestive of mild, nonspecific, diffuse encephalopathy with superimposed focal neuronal dysfunction involving the frontotemporal region consistent with the patient's history of previous stroke in that area. There are no electrographic seizures. [id number]/[facility] #: [id number] [facility]AMPUSJohn
[2018-08-09] MEDS: Heparin VIAL(*) 5000 UNITS/ML VIAL (FIVE THOUSAND) SUBCUT SCH (06:08)
[2018-08-09] MEDS: NS 0.9% 1000 ML** 1,000 ML IV SCH (07:30)
[2018-08-09] MEDS: predniSONE TAB* 5 MG PO SCH (07:52)
[2018-08-09] MEDS: Senna TAB PO SCH (07:52)
[2018-08-09] MEDS: Memantine TAB* 10 MG PO SCH (07:52)
[2018-08-09] MEDS: Tamsulosin CAP* 0.4 MG PO SCH (07:52)
[2018-08-09] MEDS: Metoprolol Tartrate TAB* 25 MG PO SCH (07:57)
[2018-08-09] MEDS: Aspirin TAB* 325 MG PO SCH (07:57)
[2018-08-09] MEDS: Docusate CAP* 100 MG PO SCH (07:57)
[2018-08-09] MEDS: Latanoprost 0.005%* 2.5 ml BTL BOTH EYES SCH (08:06)
[2018-08-09 08:15] LABS: Free T3 2.7 pg/mL (2.5-3.9)
[2018-08-09] MEDS: Acetaminophen TAB* 325 MG PO PRN (09:10)
--- NOTE | 2018-08-09 14:15 | PN ---
Subjective Date of Service: 08/09/18 Length of Stay: 2 Days Neurology is following for suspected TIA vs stroke. Interval History: He feels better but not 100%. He still feels "wobbly" when he ambulates. He tends to sway towards the right side today. He is walking better than yesterday. Family want to take him home but then agreed to send him to short term rehabilitation. He denied any focal weakness or paresthesia. Review of Systems: Denied CP, SOB, or palpitations. Objective Active Medications: Acetaminophen (Tylenol Tab*) 650 mg PO Q4H PRN PRN Reason: FEVER/PAIN Last Admin: 08/09/18 09:10 Dose: 650 mg Al Hydrox/Mg Hydrox/Simethicone (Maalox Plus*) 30 ml PO Q6H PRN PRN Reason: INDIGESTION Clopidogrel Bisulfate (Plavix Tab*) 75 mg PO DAILY [facility] Docusate Sodium (Colace Cap*) 100 mg PO BID [facility] Last Admin: 08/09/18 07:57 Dose: 100 mg Enoxaparin Sodium (Lovenox(*)) 40 mg SUBCUT BEDTIME [facility] Latanoprost (Xalatan 0.005%*) 1 drop BOTH EYES DAILY [facility] Last Admin: 08/09/18 08:06 Dose: 1 drop Memantine (Namenda Tab*) 10 mg PO DAILY [facility] Last Admin: 08/09/18 07:52 Dose: 10 mg Metoprolol Tartrate (Lopressor Tab*) 25 mg PO BID [facility] Last Admin: 08/09/18 07:57 Dose: 25 mg Prednisone (Deltasone Tab*) 5 mg PO DAILY [facility] Last Admin: 08/09/18 07:52 Dose: 5 mg Senna (Senokot Tab*) 1 tab PO DAILY [facility] Last Admin: 08/09/18 07:52 Dose: 1 tab Tamsulosin HCl (Flomax Cap*) 0.4 mg PO DAILY [facility] Last Admin: 08/09/18 07:52 Dose: 0.4 mg Vital Signs 08/08/18 08/08/18 08/08/18 19:00 20:00 20:49 Temperature 97.2 F 97.1 F Pulse Rate 71 65 Respiratory 16 18 20 Rate Blood Pressure 144/76 129/48 (mmHg) O2 Sat by Pulse 97 99 Oximetry 08/08/18 08/09/18 08/09/18 23:00 03:00 07:23 Temperature 97.9 F 97.8 F 97.1 F Pulse Rate 65 59 62 Respiratory 18 18 20 Rate Blood Pressure 151/91 155/71 194/82 (mmHg) O2 Sat by Pulse 96 97 99 Oximetry 08/09/18 08/09/18 09:00 11:11 Temperature 98.3 F Pulse Rate 61 Respiratory 18 Rate Blood Pressure 138/63 133/63 (mmHg) O2 Sat by Pulse 96 Oximetry Intake and Output Last 24 Hours 08/07/18 08/08/18 08/09/18 08/10/18 06:59 06:59 06:59 06:59 Intake Total 300 1710 1350 Output Total 350 200 Balance 300 1360 1150 Weight 183 lb 14.4 oz Intake: IV Fluids 300 990 990 Oral 0 720 360 Output: Urine 350 200 Other: # Bowel Movements 1 # Voids 2 Oxygen Devices in Use Now: None Neurology Exam: General: Well nourished, well developed, and in no acute distress HEENT: Normocephelic/atraumatic, sclera anicteric, mucous membranes moist Neck: Supple Chest: Clear to auscultation bilaterally Cardiovascular: irregular rhythm and rate Abdomen: Soft, non-tender/non-distended Extremities: No clubbing, cyanosis, or edema Neurological Findings: Awake, alert to self but not place or time. He is pleasantly demented. He has moderate psychomotor slowing. Speech: fluent without dysarthria, repetition intact Cranial Nerve: PERRL, EOM intact, VFF, no nystagmus, face symmetric bilaterally Motor: s/s throughout, proximal and distal extremities x4 tone/bulk normal Sensation: intact to LT/PP bilaterally upper and lower extremities Deep Tendon Reflex: 1+ symmetric in the upper/lower extremities, Babinski - down going Finger to nose, rapid alternating movements intact without tremor, no dysdiadochokinesia Gait: wide based gait, mild ataxia towards the right side. Result Diagrams: 08/08/18 08:40 08/08/18 08:40 Additional Lab and Data: Lab Results 08/07/18 08/07/18 08/07/18 Range/Units 14:47 14:47 14:47 WBC 5.4 (3.5-10.8) 10^3/uL RBC 4.80 (4.18-5.48) 10^6 /uL Hgb 14.3 (14.0-18.0) g/dL Hct 43 (42-52) % MCV 89 (80-94) fL MCH 30 (27-31) pg MCHC 33 (31-36) g/dL RDW 17 H (10-15) % Plt Count 189 (150-450) 10^3/uL MPV 8.3 (7.4-10.4) fL Neut % (Auto) 70.5 % Lymph % (Auto) 17.1 % [place] % (Auto) 7.4 % Eos % (Auto) 4.2 % Baso % (Auto) 0.8 % Absolute Neuts (auto) 3.8 (1.5-7.7) 10^3/ul Absolute Lymphs (auto) 0.9 L (1.0-4.8) 10^3/ul Absolute Monos (auto) 0.4 (0-0.8) 10^3/ul Absolute Eos (auto) 0.2 (0-0.6) 10^3/ul Absolute Basos (auto) 0.0 (0-0.2) 10^3/ul Absolute Nucleated RBC 0.0 10^3/ul Nucleated RBC % 0.1 INR (Anticoag Therapy) 1.02 (0.82-1.09) Sodium 140 (135-145) mmol/L Potassium 5.1 H (3.5-5.0) mmol/L Chloride 106 (101-111) mmol/L Carbon Dioxide 30 (22-32) mmol/L Anion Gap 4 (2-11) mmol/L BUN 36 H (6-24) mg/dL Creatinine 1.81 H (0.67-1.17) mg/dL Est GFR ( Amer) 43.2 (>60) Est GFR (Non-Af Amer) 35.7 (>60) BUN/Creatinine Ratio 19.9 (8-20) Glucose 111 H (70-100) mg/dL Calcium 9.6 (8.6-10.3) mg/dL Total Bilirubin 0.80 (0.2-1.0) mg/dL AST 19 (13-39) U/L ALT 14 (7-52) U/L Alkaline Phosphatase 74 (34-104) U/L Troponin I 0.03 (<0.04) ng/mL Total Protein 7.2 (6.4-8.9) g/dL Albumin 4.0 (3.2-5.2) g/dL Globulin 3.2 (2-4) g/dL Albumin/Globulin Ratio 1.3 (1-3) Microbiology and Other Data: Microbiology 08/07/18 20:31 Nasal Screen MRSA (PCR) - Final Nasal Mrsa Not Detected Assessment/Plan Assessment: 88 yo male with PMHx prior CVA, atrial fibrillation (not on AC), pacemaker, CAD s/p CABG, melanoma with mets now in remission presents with aphasia and gait disturbance. 1. Sudden onset gait instability, sudden onset lethargy, reported generalized weakness- significant improvement overnight but he still has gait imbalance. Concern for small embolic stroke involving the right cerebellum or left parietal region, not seen on CT head. Repeat CT head is stable. There is no evidence of metastatic disease to the brain. Unable to obtain an MRI due to incompatible pacemaker (according to family). Risk factor for stroke include diffuse multifocal intracranial stenosis and atrial fibrillation not on anticoagulation therapy. The patient and family declined anticoagulation therapy due to the risk of falls and ICH. We agreed to switch the aspirin to Plavix 75 mg daily. Started him on atorvastatin 40 mg nightly (LDL elevated at 172). We did not start high dose statin therapy given his age and increased risk for myalgias. Follow-up with [facility] in 3-4 weeks. 2. 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 - Continue antiplatelet therapy - He does not have a UTI that can contribute to his gait abnormality. I will sign off but please contact me for any questions or concerns.
[2018-08-09 17:55] VITALS: BP 153/82
[2018-08-09] MEDS ORDERED: Enoxaparin(*) 40 MG/0.4 ML SYR SUBCUT SCH (21:00)
[2018-08-09] MEDS ORDERED: Atorvastatin* 40 MG TAB PO SCH (21:00)
--- NOTE | 2018-08-10 | DS ---
CC: Hnas Frank MD; Chaitanya Heck MD; Dr. Knox * DISCHARGE SUMMARY: DATE OF ADMISSION: 08/07/18 DATE OF DISCHARGE: 08/09/18 PRIMARY CARE PHYSICIAN: Hans Frank MD. ONCOLOGIST: Chaitanya Heck MD. PRIMARY DIAGNOSIS: Possible embolic stroke to right cerebellum or left parietal region. SECONDARY DIAGNOSES: 1. History of cerebrovascular accident. 2. Hypertension. 3. Atrial fibrillation, not on AC. 4. Metastatic melanoma, status post chemo and radiation. 5. Coronary artery disease, status CABG. 6. Rheumatoid arthritis. 7. Benign prostatic hypertrophy. 8. Chronic kidney disease. 9. Dementia. CONSULTS: Dr. Knox of Neurology. DISCHARGE MEDICATIONS: 1. Plavix 75 mg daily. 2. Atorvastatin 40 mg nightly. 3. Donepezil 5 mg daily. 4. Metoprolol tartrate 25 mg twice a day. 5. Prednisone 5 mg daily. 6. Methotrexate 7.5 mg weekly. 7. Memantine 10 mg daily. 8. Tamsulosin 0.4 mg daily. 9. Losartan 50 mg nightly. 10. Prolia injections as an outpatient. HISTORY OF PRESENT ILLNESS: Mr. Macedo is an 88-year-old man with a history of metastatic melanoma to the lungs and liver in remission; history of CVA; atrial fibrillation, status post pacemaker, not on anticoagulation; CAD, status post CABG; rheumatoid arthritis; and CKD; who is presenting to the emergency department via an outside urgent care center. The patient was [facility] earlier on morning of presentation with his when he complained of feeling dizzy, was apparently very tired and had asked his , "Can I go to bed?" The then later noticed the patient had garbled speech and she describes his tongue as "sounding too large in his mouth." They presented to urgent care , and upon learning that the patient was also experiencing right shoulder pain radiating down his arm, they asked him to go to the emergency room. The notes that the patient was having difficulty ambulating to the car, whereas normally he can do this on his own. The patient also reports a headache 1 day prior to admission. The patient spends 7 months a year in [place], [place], which is where he was receiving his oncology care, although the reports the patient does occasionally go to Dr. Heck. HOSPITAL COURSE: At the time of presentation, the patient's agreed that the patient's speech is no longer as garbled as it was before, and the speech change had lasted approximately 4 hours. The patient's vital sings were unremarkable except for a blood pressure noted to be 190/94. The patient was then admitted to Medicine with neuro consult for evaluation for stroke. Imaging and echo were largely unremarkable, and while patient's speech had improved, he still had significant gait instability beyond his baseline. Hospitalist team providers and neurologists had significant conversation with patient and his family regarding need for anticoagulation given atrial fibrillation with history of stroke and current presentation concerned for stroke; however, family and patient made a decision to not pursue anticoagulation at this time given their concerns over his history of falls. They did agree to initiate statin therapy as well as switching aspirin to Plavix. Care team, patient and patient's also extensively discussed benefit of rehab placement for patient's noted gait instability; however, patient and his declined placement as they prefer that he stay home where he has someone with him 24 hours a day. They report he is unable to sleep well when he is not at home with family, so he instead will be referred for home physical therapy. Also of note, during admission, patient had chest x-ray, which was concerning for new retrocardiac left hilar consolidation suspicious potentially for infrahilar lymphadenopathy; so a chest CT was ordered, which showed lesions concerning for metastatic disease to lung and liver. When these results were discussed with patient and his , they report that he has had a PET scan recently in [place] and that he has a known history of metastatic disease to the lung and the liver and that they have an appointment pending at [facility] within the next 2 weeks for followup of oncologic care. They do not think these findings are new and prefer to follow up with ongoing care outpatient. On day of discharge, patient reports feeling somewhat tired, but otherwise reports that he is in his usual state of health and the 10-point review of systems is negative. The patient reports being able to ambulate around the hospital with assistance and denies that his gait is more unstable; however, reports that he has more gait instability than previously. PHYSICAL EXAMINATION: Afebrile, heart rate 60s, blood pressure 133/63, respiratory rate 18, oxygen saturation 96% on room air. In general, he is a well -appearing, elderly man in no acute distress. Frail appearing. HEENT: Moist mucous membranes. OP clear. Heart: Irregularly irregular. No murmurs, gallops, or rubs. Lungs: Clear to auscultation bilaterally. Abdomen: Soft, nontender, nondistended. Extremities: Warm and well perfused without evidence of edema. Neuro Exam: Oriented to self and . Does not known location or date. Speech fluent. CN II through XII intact. Strength 5/5 in upper and lower extremities. [id number] normal bilaterally. Gait: Wide based, unsteady. PERTINENT STUDIES AND LABS: Hemoglobin 13.6, normocytic. Creatinine 1.46. Vitamin B12 of 513. TSH 7.09 with normal free T4 and free T3. Chest x-ray with new retrocardiac left hilar consolidation with suggestion of air bronchogram suspicious for pneumonia, potentially infrahilar lymphadenopathy. Brain CT with no acute intracranial process evident. Old right MCA distribution infarct, involutional change and stigmata of chronic small vessel ischemic disease. Repeat brain CT 2 days later without acute intracranial pathology, other changes as noted. Head CTA with no significant stenosis of right ICA, multifocal mild to moderate stenosis of the right vertebral artery with calcified plaque in left proximal ICA with approximately 70% stenosis. Moderate stenosis of the prominent left vertebral artery with calcified plaque. Transthoracic echocardiogram with LV systolic function normal with estimated EF 50% to 55% without regional wall motion abnormalities. RV with systolic function normal. No PFO demonstrated by color Doppler or agitated saline contrast. Aortic valve without evidence of stenosis. Mild regurgitation of AV and MV. EEG with focal slowing in the right frontotemporal region, intermittent diffuse slowing of the background, and slow posterior dominant rhythm. These findings are suggestive of mild nonspecific diffuse encephalopathy with superimposed focal neuronal dysfunction involving the frontotemporal region consistent with the patient's history of previous stroke in that area. There are no electrographic seizures. DISCHARGE PLAN: The patient is follow up closely with his primary care physician, Dr. Hans Frank and he also has close followup scheduled with his oncologist for ongoing metastatic melanoma evaluation. He should also follow up with [facility]. His medications are listed above with the following noted changes from his prior home medications: He will discontinue aspirin and start Plavix and atorvastatin. The patient will not be discharged on anticoagulation given wishes of him and his family. He and his are extensively educated on return precautions which include but are not limited to recurrence of speech changes, focal weakness, or worsening gait abnormalities. He is to resume a healthy diet low in processed foods, with activity as tolerated. He has been referred for home VNS for evaluation for home physical therapy. DISPOSITION: To home. CONDITION: Improved. TIME SPENT: Approximately 60 minutes spent on discharge of this patient, more than half of which was spent with care, coordination or at bedside for interview and exam. [id number]/[facility] #: [id number] NATY
[2018-08-10] MEDS ORDERED: Clopidogrel TAB* 75 MG PO SCH (09:00)
== END 2018-08-09 17:52 | disposition home health service (06) | DRG 65 ==
LOC: ED 13:59 → MEDTELE 22:27 → OBSVTOIN 22:27
PROVIDERS: ADMIT Internal Medicine; ATTEND Internal Medicine
PROC: 4A00X4Z Measurement of Central Nervous Electrical Activity, External Approach (ICD-10-PCS; principal; 2018-08-08)
DX: I63.89 Other cerebral infarction (principal); C78.00 Secondary malignant neoplasm of unspecified lung; C78.7 Secondary malignant neoplasm of liver and intrahepatic bile duct; N17.9 Acute kidney failure, unspecified; R47.01 Aphasia; C43.9 Malignant melanoma of skin, unspecified; H91.90 Unspecified hearing loss, unspecified ear; R40.2362 Coma scale, best motor response, obeys commands, at arrival to emergency department; R40.2132 Coma scale, eyes open, to sound, at arrival to emergency department; R40.2252 Coma scale, best verbal response, oriented, at arrival to emergency department; E87.5 Hyperkalemia; N18.3 Chronic kidney disease, stage 3 (moderate); I48.91 Unspecified atrial fibrillation; I25.10 Atherosclerotic heart disease of native coronary artery without angina pectoris; M06.9 Rheumatoid arthritis, unspecified; K21.9 Gastro-esophageal reflux disease without esophagitis; H40.9 Unspecified glaucoma; I12.9 Hypertensive chronic kidney disease with stage 1 through stage 4 chronic kidney disease, or unspecified chronic kidney disease; I16.0 Hypertensive urgency; R59.0 Localized enlarged lymph nodes; N18.9 Chronic kidney disease, unspecified; R29.701 NIHSS score 1; R26.9 Unspecified abnormalities of gait and mobility; F03.90 Unspecified dementia, unspecified severity, without behavioral disturbance, psychotic disturbance, mood disturbance, and anxiety; N40.0 Benign prostatic hyperplasia without lower urinary tract symptoms; Z86.73 Personal history of transient ischemic attack (TIA), and cerebral infarction without residual deficits; Z82.49 Family history of ischemic heart disease and other diseases of the circulatory system; Z97.4 Presence of external hearing-aid; Z88.8 Allergy status to other drugs, medicaments and biological substances; Z88.6 Allergy status to analgesic agent; Z95.1 Presence of aortocoronary bypass graft; I25.2 Old myocardial infarction; Z98.49 Cataract extraction status, unspecified eye; Z79.52 Long term (current) use of systemic steroids; Z79.02 Long term (current) use of antithrombotics/antiplatelets
CPT/HCPCS: 36415; 70450; 70496; 70498; 71045; 71250; 80048; 80053; 80061; 81003; 82565; 82607; 84439; 84443; 84481; 84484; 84520; 85025; 85610; 85730; 87641; 93005; 93306; 95816; 97530; 99285; A9270-GY; G8978-GP-CJ; G8979-GP-CI; G8987-GO-CK; G8988-GO-CI; J1644; J7512; Q9967

== ENCOUNTER 2019-01-03 05:42 | Day surgery (SDC) | payer MEDICARE, OTHER ==
[~2019-01-03 05:42] MED LIST: Buffered Lidocaine 1% SYRIN* 1 ML/SYRINGE INTRADERM ONE
[2019-01-03] MEDS ORDERED: Famotidine IV* 10 MG/ML 2 ML (20 mg) IV ONE (06:00)
[2019-01-03] MEDS ORDERED: Dexamethasone IV* 4 MG/ML 1 ML (4 MG) IV SLOW PU ONE (06:00)
[2019-01-03] MEDS ORDERED: Lactated Ringers 1000 ML Bag* 1,000 ML IV SCH (06:00)
[2019-01-03] MEDS ORDERED: Dexamethasone IV* 4 MG/ML 1 ML (4 MG) ONE (06:09)
[2019-01-03] MEDS ORDERED: Famotidine IV* 10 MG/ML 2 ML (20 mg) ONE (06:09)
[2019-01-03] MEDS ORDERED: ceFAZolin 2 GM in NS PREMIX(*) 2 GM/100 ML BAG IVPB ONE (06:10)
[2019-01-03] MEDS ORDERED: Lidocaine 1% w EPI 1:100,000* MDV 20 ML VIAL ONE (06:56)
[2019-01-03] MEDS ORDERED: Bupivacaine 0.25% SDV PF* 10 ML VIAL INJ ONE (06:57)
[2019-01-03] MEDS ORDERED: Naloxone* 0.4 MG/ML 1 ML VIAL IV PRN (07:15)
[2019-01-03] MEDS ORDERED: fentaNYL* 50 MCG/ML 2 ML VIAL (100 MCG VIAL) ONE (07:18)
[2019-01-03] MEDS ORDERED: Propofol* 10 MG/ML 20 ML BTL ONE (07:19)
[2019-01-03 09:28] VITALS: BP 156/74
== END 2019-01-03 10:00 | disposition home or self-care (01) ==
LOC: OR 05:42
PROVIDERS: ATTEND Plastic Surgery
DX: C43.61 Malignant melanoma of right upper limb, including shoulder (principal); Z95.1 Presence of aortocoronary bypass graft; E03.9 Hypothyroidism, unspecified; Z95.0 Presence of cardiac pacemaker; I10 Essential (primary) hypertension; Z86.73 Personal history of transient ischemic attack (TIA), and cerebral infarction without residual deficits; M06.9 Rheumatoid arthritis, unspecified; I25.10 Atherosclerotic heart disease of native coronary artery without angina pectoris
CPT/HCPCS: 88305; 88342; J0690; J1100; J2704; J3010; J3490